=== PATIENT | female | born 1960 | race Caucasian/White ===

== ENCOUNTER 2020-01-08 23:36 | Emergency (ER) | payer SELFPAY ==
[~2020-01-08] VITALS: Ht 154.9 cm; Wt 59.0 kg
[2020-01-08 23:39] VITALS: Ht 154.9 cm; Wt 59.0 kg
[2020-01-09 00:34] LABS: BASOPHIL % 0.9 % (0-2); PLATELET COUNT 226 x10^3mcL (130-400)
[2020-01-09 00:35] LABS: RED CELL DISTRIBUTION WIDTH 16.5 % (11.5-14.5)
[2020-01-09 00:40] LABS: CALCIUM 7.7 mg/dL (8.5-10.1); CARBON DIOXIDE 23.6 mmol/L (21-32); CHLORIDE SERUM 96 mmol/L (98-107); CREATININE SERUM 0.8 mg/dL (0.6-1.0); GFR1 > 60 mL/min; GLUCOSE SERUM 140 mg/dL (74-106); POTASSIUM SERUM 3.6 mmol/L (3.5-5.1); SODIUM SERUM 129 mmol/L (136-145)
[2020-01-09 00:44] LABS: ALBUMIN 3.1 g/dL (3.4-5.0); ALKALINE PHOSPHATASE 100 U/L (46-116); ALT/SGPT 23 U/L (14-59); AST/SGOT 26 U/L (15-37); BILIRUBIN TOTAL 2.44 mg/dL (0.20-1.00); C REACTIVE PROTEIN 2.5 mg/dL (<=0.9); LACTIC DEHYDROGENASE (LDH) 216 U/L (100-190); TOTAL PROTEIN, SERUM 7.7 g/dL (6.4-8.2)
[2020-01-09 01:36] LABS: UA SPECIFIC GRAVITY >=1.030 (1.005-1.035); microscopic required? YES; urine erythrocyte TRACE (NEGATIVE)
[2020-01-09 03:36] VITALS: BP 131/81
== END 2020-01-09 03:36 | disposition short-term general hospital (02) ==
LOC: ED 23:36
PROVIDERS: Emergency Medicine
DX: I48.20 Chronic atrial fibrillation, unspecified (principal); I50.9 Heart failure, unspecified; K86.89 Other specified diseases of pancreas; E87.1 Hypo-osmolality and hyponatremia; R09.02 Hypoxemia; D64.9 Anemia, unspecified; I61.8 Other nontraumatic intracerebral hemorrhage; Z90.49 Acquired absence of other specified parts of digestive tract; Z20.828 Contact with and (suspected) exposure to other viral communicable diseases
CPT/HCPCS: 36600; 83880; 85378; J3490; Q0092

== ENCOUNTER 2020-01-12 12:39 | Emergency (ER) | payer MEDICAID ==
[2020-01-12 13:00] VITALS: Ht 165.1 cm
[2020-01-12] MEDS ORDERED: DIGITEK250 MCG (13:47)
[2020-01-12] MEDS ORDERED: KEPPRA500 MG (13:48)
[2020-01-12] MEDS ORDERED: TOPROL XL50 MG (13:48)
[2020-01-12] MEDS ORDERED: ACID REDUCER20 MG (13:48)
[2020-01-12] MEDS ORDERED: LASIX40 MG (13:48)
[2020-01-12 14:37] LABS: CALCIUM 8.9 mg/dL (8.5-10.1); CARBON DIOXIDE 27.3 mmol/L (21-32); CHLORIDE SERUM 96 mmol/L (98-107); CREATININE SERUM 0.7 mg/dL (0.6-1.0); GFR1 > 60 mL/min; GLUCOSE SERUM 141 mg/dL (74-106); POTASSIUM SERUM 3.8 mmol/L (3.5-5.1); SODIUM SERUM 132 mmol/L (136-145)
[2020-01-12 14:39] LABS: BASOPHIL % 0.1 % (0-2); PLATELET COUNT 271 x10^3mcL (130-400); RED CELL DISTRIBUTION WIDTH 16.1 % (11.5-14.5)
[2020-01-12 14:54] LABS: ALBUMIN 3.6 g/dL (3.4-5.0); ALKALINE PHOSPHATASE 101 U/L (46-116); ALT/SGPT 20 U/L (14-59); AST/SGOT 22 U/L (15-37); BILIRUBIN TOTAL 3.1 mg/dL (0.20-1.00); FREE T4 1.97 ng/dL (0.76-1.46)
[2020-01-12 15:03] LABS: UA SPECIFIC GRAVITY 1.025 (1.005-1.035); microscopic required? YES; urine erythrocyte 1+ (NEGATIVE)
[2020-01-12 21:32] VITALS: BP 152/70
== END 2020-01-12 21:32 | disposition short-term general hospital (02) ==
LOC: ED 12:39
PROVIDERS: Emergency Medicine
DX: R41.82 Altered mental status, unspecified (principal)
CPT/HCPCS: 83880; 84439; G0480; J1953; J2270; J3490; Q0092